=== PATIENT | female | born 1965 | race Caucasian/White ===

== ENCOUNTER 2017-01-03 18:53 | Emergency (ER) | payer MEDICAID ==
[~2017-01-03] VITALS: Ht 167.6 cm; Wt 71.8 kg
[~2017-01-03 18:53] MED LIST: ALBU8.5H3; AZIT-14 PO; LISI-170 PO; NICO1PAT4 TD; NICO2GUM3 PO; PRED20TA PO; QUET200T4 PO; TRAZ100T15 PO; ZOLOFT PO
[2017-01-03] MEDS ORDERED: DIPHENHYDRAMINE 50 MG/ML, 1ML IVPush ONE (19:30)
[2017-01-03] MEDS ORDERED: SODIUM CHLORIDE FLUSH 10ML SYR IVF ONE (19:30)
[2017-01-03] MEDS ORDERED: KETOROLAC 30 MG/1 ML IVPush ONE (19:30)
[2017-01-03] MEDS ORDERED: METOCLOPRAMIDE 5 MG/ML, 2ML IVPush ONE (19:30)
[2017-01-03] MEDS ORDERED: SODIUM CHLORIDE 0.9% 1,000ML IVBOLUS ONE ×2 (19:30→21:00)
[2017-01-03] MEDS ORDERED: PROCHLORPERAZINE 5 MG/ML, 2ML IVPush ONE (19:30)
[2017-01-03] MEDS ORDERED: PROCHLORPERAZINE 5 MG/ML, 2ML ONE (19:41)
[2017-01-03] MEDS ORDERED: KETOROLAC 30 MG/1 ML ONE (19:41)
[2017-01-03] MEDS ORDERED: DIPHENHYDRAMINE 50 MG/ML, 1ML ONE (19:41)
[2017-01-03 20:46] LABS: HEMOGLOBIN 15.1 g/dL (11.7-16.4)
[2017-01-03 20:53] LABS: BLOOD UREA NITROGEN 22 mg/dL (7-18)
[2017-01-03 20:54] VITALS: BP 119/77
== END 2017-01-03 22:34 | disposition home or self-care (01) ==
LOC: ED 21:28
DX: R51 Headache (principal); F43.10 Post-traumatic stress disorder, unspecified; Z87.01 Personal history of pneumonia (recurrent); I10 Essential (primary) hypertension; F32.9 Major depressive disorder, single episode, unspecified
CPT/HCPCS: 36415; 80048; 82040; 85025; 96374; 96375; 99284; J0780; J1200; J1885; J7030

== ENCOUNTER 2017-01-15 14:10 | Emergency (ER) | payer MEDICAID ==
[~2017-01-15] VITALS: Ht 167.6 cm; Wt 73.2 kg
[2017-01-15] MEDS ORDERED: HYDROcodone/APAP 5/325 TABLET ONE (14:56)
[2017-01-15] MEDS ORDERED: IBUPROFEN 200 MG TABLET ONE (14:58)
[2017-01-15] MEDS ORDERED: IBUPROFEN 200 MG TABLET PO ONE (15:00)
[2017-01-15 16:34] VITALS: BP 146/92
== END 2017-01-15 16:36 | disposition home or self-care (01) ==
LOC: ED 15:55
DX: M25.561 Pain in right knee (principal); M79.89 Other specified soft tissue disorders
CPT/HCPCS: 99284

== ENCOUNTER 2017-03-22 12:00 | Emergency (ER) | payer MEDICAID ==
[~2017-03-22] VITALS: Ht 167.6 cm; Wt 82.9 kg
[~2017-03-22 12:00] MED LIST changes: -AZIT-14 PO; +AZIT250T89 PO
[2017-03-22 12:04] VITALS: BP 137/92
== END 2017-03-22 13:16 | disposition home or self-care (01) ==
LOC: ED 13:10
DX: M25.461 Effusion, right knee (principal); I10 Essential (primary) hypertension; J45.909 Unspecified asthma, uncomplicated; G43.909 Migraine, unspecified, not intractable, without status migrainosus
CPT/HCPCS: 29505

== ENCOUNTER 2017-05-13 18:56 | Emergency (ER) | payer MEDICAID ==
[~2017-05-13] VITALS: Ht 167.6 cm; Wt 69.2 kg
[~2017-05-13 18:56] MED LIST changes: -ALBU8.5H3; +ALBU8.5H8; +NICO1PAT13 TD; -NICO1PAT4 TD; -NICO2GUM3 PO; +NICO2GUM41 PO
[2017-05-13 18:59] VITALS: BP 146/98
== END 2017-05-13 19:51 | disposition home or self-care (01) ==
LOC: ED 19:45
DX: S00.06XA Insect bite (nonvenomous) of scalp, initial encounter (principal); J45.909 Unspecified asthma, uncomplicated; I10 Essential (primary) hypertension; F17.200 Nicotine dependence, unspecified, uncomplicated; Z91.041 Radiographic dye allergy status; W57.XXXA Bitten or stung by nonvenomous insect and other nonvenomous arthropods, initial encounter; Y93.89 Activity, other specified; Y92.89 Other specified places as the place of occurrence of the external cause; Y99.8 Other external cause status
CPT/HCPCS: 99281

== ENCOUNTER 2017-05-25 14:48 | Emergency (ER) | payer MEDICAID ==
[~2017-05-25] VITALS: Ht 167.6 cm; Wt 68.6 kg
[2017-05-25 14:59] VITALS: BP 125/94
== END 2017-05-25 16:23 | disposition home or self-care (01) ==
LOC: ED 16:10
DX: J20.8 Acute bronchitis due to other specified organisms (principal); G89.29 Other chronic pain; F17.210 Nicotine dependence, cigarettes, uncomplicated; I10 Essential (primary) hypertension; J45.909 Unspecified asthma, uncomplicated; G43.909 Migraine, unspecified, not intractable, without status migrainosus
CPT/HCPCS: 71020; 93005; 99284

== ENCOUNTER 2017-06-21 11:29 | Emergency (ER) | payer MEDICAID ==
[~2017-06-21] VITALS: Ht 167.6 cm; Wt 71.6 kg
[~2017-06-21 11:29] MED LIST changes: +NICO-486 TD; -NICO1PAT13 TD
[2017-06-21 12:25] LABS: HEMOGLOBIN 13.7 g/dL (11.7-16.4); WHITE BLOOD COUNT 9.3 x10^3/uL (3.4-10)
[2017-06-21] MEDS ORDERED: HYDROmorphone 1 MG/ML, 1ML IVPush PRN (12:30)
[2017-06-21] MEDS ORDERED: SODIUM CHLORIDE FLUSH 10ML SYR IVF ONE (12:30)
[2017-06-21] MEDS ORDERED: ONDANSETRON 2MG/ML, 2ML IVPush ONE (12:30)
[2017-06-21 12:37] LABS: BLOOD UREA NITROGEN 23 mg/dL (7-18)
[2017-06-21] MEDS ORDERED: ONDANSETRON 2MG/ML, 2ML ONE (13:16)
[2017-06-21] MEDS ORDERED: HYDROmorphone 1 MG/ML, 1ML ONE (13:16)
[2017-06-21 14:00] VITALS: BP 148/93
== END 2017-06-21 14:28 | disposition home or self-care (01) ==
LOC: ED 12:04
DX: K59.00 Constipation, unspecified (principal); G89.29 Other chronic pain; I10 Essential (primary) hypertension; J45.909 Unspecified asthma, uncomplicated; F43.10 Post-traumatic stress disorder, unspecified
CPT/HCPCS: 36415; 74176; 80048; 81003; 82040; 85025; 96374; 96375; 99285; J1170; J2405

== ENCOUNTER 2017-07-02 18:49 | Emergency (ER) | payer MEDICAID ==
[~2017-07-02] VITALS: Ht 167.6 cm; Wt 76.5 kg
[2017-07-02 19:33] LABS: HEMATOCRIT 41.3 % (34.6-47.8); HEMOGLOBIN 13.5 g/dL (11.7-16.4); WHITE BLOOD COUNT 8.9 x10^3/uL (3.4-10)
[2017-07-02 19:45] LABS: BLOOD UREA NITROGEN 10 mg/dL (7-18)
[2017-07-02] MEDS ORDERED: ALBUTEROL 0.5%, 20ML NPPB SCH (20:00)
[2017-07-02] MEDS ORDERED: ALBUTEROL SULFATE 2.5MG/0.5ML ONE (20:00)
[2017-07-02 20:27] VITALS: BP 146/88
== END 2017-07-02 21:04 | disposition home or self-care (01) ==
LOC: ED 20:21
DX: J44.1 Chronic obstructive pulmonary disease with (acute) exacerbation (principal); Z87.891 Personal history of nicotine dependence; F32.9 Major depressive disorder, single episode, unspecified; F43.10 Post-traumatic stress disorder, unspecified; I10 Essential (primary) hypertension; J45.909 Unspecified asthma, uncomplicated
CPT/HCPCS: 36415; 71020; 80048; 82040; 85025; 93005; 94640; 99285; J7512

== ENCOUNTER 2017-11-14 10:38 | Emergency (ER) | payer MEDICAID ==
[~2017-11-14] VITALS: Ht 167.6 cm; Wt 79.0 kg
[2017-11-14 10:52] VITALS: BP 142/89
[2017-11-14] MEDS ORDERED: KETOROLAC 30 MG/1 ML ONE (11:17)
[2017-11-14] MEDS ORDERED: KETOROLAC 30 MG/1 ML IM ONE (11:30)
== END 2017-11-14 11:51 | disposition home or self-care (01) ==
LOC: ED 11:48
DX: J00 Acute nasopharyngitis [common cold] (principal); G43.909 Migraine, unspecified, not intractable, without status migrainosus; I10 Essential (primary) hypertension; J44.9 Chronic obstructive pulmonary disease, unspecified; G89.29 Other chronic pain; F43.10 Post-traumatic stress disorder, unspecified
CPT/HCPCS: 71046; 82962; 96372; 99284; J1885

== ENCOUNTER 2018-03-04 20:15 | Emergency (ER) | payer MEDICAID ==
[~2018-03-04] VITALS: Ht 162.6 cm; Wt 76.8 kg
[2018-03-04 20:23] VITALS: BP 137/87
== END 2018-03-04 22:02 | disposition home or self-care (01) ==
LOC: ED 21:35
DX: S83.91XA Sprain of unspecified site of right knee, initial encounter (principal); G89.29 Other chronic pain; I10 Essential (primary) hypertension; J45.909 Unspecified asthma, uncomplicated; G43.909 Migraine, unspecified, not intractable, without status migrainosus; X50.1XXA Overexertion from prolonged static or awkward postures, initial encounter; Y93.89 Activity, other specified; Y92.009 Unspecified place in unspecified non-institutional (private) residence as the place of occurrence of the external cause; Y99.8 Other external cause status
CPT/HCPCS: 99284

== ENCOUNTER 2018-03-13 13:08 | Emergency (ER) | payer MEDICAID ==
[~2018-03-13] VITALS: Ht 165.1 cm; Wt 74.2 kg
[2018-03-13 13:10] VITALS: BP 141/99
[2018-03-13] MEDS ORDERED: HYDROcodone/APAP 5/325 TABLET ONE (13:41)
[2018-03-13] MEDS ORDERED: HYDROcodone/APAP 5/325 TABLET PO ONE (14:00)
== END 2018-03-13 14:11 | disposition home or self-care (01) ==
LOC: ED 14:05
DX: L03.113 Cellulitis of right upper limb (principal); L03.114 Cellulitis of left upper limb; L20.84 Intrinsic (allergic) eczema; J44.9 Chronic obstructive pulmonary disease, unspecified; I10 Essential (primary) hypertension; F17.210 Nicotine dependence, cigarettes, uncomplicated
CPT/HCPCS: 99283

== ENCOUNTER 2018-06-20 08:14 | Emergency (ER) | payer MEDICAID ==
[~2018-06-20] VITALS: Ht 170.2 cm; Wt 95.0 kg
[~2018-06-20 08:14] MED LIST changes: +TRAZ-137 PO; -TRAZ100T15 PO
[2018-06-20] MEDS ORDERED: SERT100T PO (09:29)
[2018-06-20] MEDS ORDERED: FLUN8.9H INH (09:30)
[2018-06-20] MEDS ORDERED: KETOROLAC 30 MG/1 ML ONE (09:35)
[2018-06-20 09:51] LABS: BASOPHILS # (AUTO) 0.08 x10^3/uL (0-0.1); BASOPHILS % (AUTO) 1 % (0-1); EOSINOPHILS # (AUTO) 0.24 x10^3/uL (0-0.4); EOSINOPHILS % (AUTO) 4 % (1-7); LYMPHOCYTES # (AUTO) 1.81 x10^3/uL (1-3.4); LYMPHOCYTES % (AUTO) 26 % (22-44); MD NO; MEAN CORPUSCULAR HEMOGLOBIN 28.9 pg (27.0-34.8); MEAN CORPUSCULAR HGB CONC 33.2 g/dL (32.4-35.8); MEAN CORPUSCULAR VOLUME 87.1 fL (80-100); MEAN PLATELET VOLUME 7.4 fL (7.4-10.4); MONOCYTES # (AUTO) 0.59 x10^3/uL (0.2-0.8); MONOCYTES % (AUTO) 9 % (2-9); NEUTROPHILS # (AUTO) 4.14 x10^3/uL (1.8-6.8); NEUTROPHILS % (AUTO) 61 % (42-75); PLATELET COUNT 290 x10^3/uL (130-400); RED BLOOD COUNT 4.64 x10^6/uL (3.82-5.3); RED CELL DISTRIBUTION WIDTH 13.7 % (9.6-15.2)
[2018-06-20] MEDS ORDERED: KETOROLAC 60 MG/2 ML IM ONE (10:00)
[2018-06-20 10:04] LABS: ALBUMIN 3.2 g/dL (3.4-5.0); ANION GAP 5 mmol/L (5-15); CALCIUM 8.2 mg/dL (8.5-10.1); CHLORIDE 113 mmol/L (98-107); CREATININE 0.77 mg/dL (0.55-1.02)
[2018-06-20 10:44] VITALS: BP 138/90
== END 2018-06-20 10:47 | disposition home or self-care (01) ==
LOC: ED 09:53
DX: G44.219 Episodic tension-type headache, not intractable (principal); G43.909 Migraine, unspecified, not intractable, without status migrainosus; I10 Essential (primary) hypertension; J44.9 Chronic obstructive pulmonary disease, unspecified; G89.29 Other chronic pain; F43.10 Post-traumatic stress disorder, unspecified; Z98.51 Tubal ligation status
CPT/HCPCS: 36415; 70450; 71045; 80048; 82040; 85025; 96372; 99285; J1885

== ENCOUNTER 2018-07-18 10:17 | Emergency (ER) | payer MEDICAID ==
[~2018-07-18] VITALS: Ht 165.1 cm; Wt 74.0 kg
[~2018-07-18 10:17] MED LIST changes: +FLUN8.9H INH; +SERT100T PO
[2018-07-18] MEDS ORDERED: ALBUTEROL/IPRATROPIUM 2.5MG/0.5MG, 3 ML NPPB ONE (11:00)
[2018-07-18] MEDS ORDERED: ALBUTEROL/IPRATROPIUM 2.5MG/0.5MG, 3 ML ONE (11:07)
[2018-07-18 11:29] VITALS: BP 152/104
== END 2018-07-18 11:40 | disposition home or self-care (01) ==
LOC: ED 10:57
DX: J20.8 Acute bronchitis due to other specified organisms (principal); F43.10 Post-traumatic stress disorder, unspecified; J44.9 Chronic obstructive pulmonary disease, unspecified; I10 Essential (primary) hypertension; F17.200 Nicotine dependence, unspecified, uncomplicated; Z91.013 Allergy to seafood
CPT/HCPCS: 71046; 93005; 94640; 99284; J7512; J7620

== ENCOUNTER 2018-09-19 11:52 | Emergency (ER) | payer MEDICAID ==
[~2018-09-19] VITALS: Ht 167.6 cm; Wt 72.6 kg
[2018-09-19 11:58] VITALS: BP 149/107
[2018-09-19] MEDS ORDERED: KETOROLAC 30 MG/1 ML IM ONE (12:30)
[2018-09-19] MEDS ORDERED: KETOROLAC 30 MG/1 ML ONE (12:43)
== END 2018-09-19 13:11 | disposition home or self-care (01) ==
LOC: ED 13:05
DX: S40.012A Contusion of left shoulder, initial encounter (principal); J45.909 Unspecified asthma, uncomplicated; F32.9 Major depressive disorder, single episode, unspecified; F17.200 Nicotine dependence, unspecified, uncomplicated; W20.8XXA Other cause of strike by thrown, projected or falling object, initial encounter; Y93.89 Activity, other specified; Y92.098 Other place in other non-institutional residence as the place of occurrence of the external cause; Y99.8 Other external cause status
CPT/HCPCS: 73030; 96372; 99283; J1885

== ENCOUNTER 2018-09-30 07:26 | Emergency (ER) | payer MEDICAID ==
[~2018-09-30] VITALS: Ht 167.6 cm; Wt 68.4 kg
[2018-09-30 07:28] VITALS: BP 123/88
[2018-09-30] MEDS ORDERED: ONDANSETRON 2MG/ML, 2ML ONE (07:45)
[2018-09-30] MEDS ORDERED: FAMOTIDINE 20 MG/2 ML ONE (07:46)
[2018-09-30 07:55] LABS: BASOPHILS # (AUTO) 0.06 x10^3/uL (0-0.1); BASOPHILS % (AUTO) 1 % (0-1); EOSINOPHILS # (AUTO) 0.11 x10^3/uL (0-0.4); EOSINOPHILS % (AUTO) 1 % (1-7); LYMPHOCYTES # (AUTO) 2.18 x10^3/uL (1-3.4); LYMPHOCYTES % (AUTO) 18 % (22-44); MD NO; MEAN CORPUSCULAR HEMOGLOBIN 29.1 pg (27.0-34.8); MEAN CORPUSCULAR HGB CONC 33.1 g/dL (32.4-35.8); MEAN CORPUSCULAR VOLUME 88.1 fL (80-100); MEAN PLATELET VOLUME 7.5 fL (7.4-10.4); MONOCYTES # (AUTO) 0.97 x10^3/uL (0.2-0.8); MONOCYTES % (AUTO) 8 % (2-9); NEUTROPHILS # (AUTO) 8.86 x10^3/uL (1.8-6.8); NEUTROPHILS % (AUTO) 73 % (42-75); PLATELET COUNT 431 x10^3/uL (130-400); RED BLOOD COUNT 5.88 x10^6/uL (3.82-5.3); RED CELL DISTRIBUTION WIDTH 13.4 % (9.6-15.2)
[2018-09-30] MEDS ORDERED: ONDANSETRON 2MG/ML, 2ML IVPush ONE (08:00)
[2018-09-30] MEDS ORDERED: SODIUM CHLORIDE 0.9% 1,000ML IVBOLUS ONE ×2 (08:00→09:00)
[2018-09-30] MEDS ORDERED: FAMOTIDINE 20 MG/2 ML IVP ONE (08:00)
--- NOTE | 2018-09-30 08:07 | NUR ---
pt reports abd pain w n/v observed pt on first time to room drinking coffee and talking on cell phone in full sentences no noted obsevation of nausea at thi time iv started and meds given per orders
[2018-09-30 08:09] LABS: ALANINE AMINOTRANSFERASE 23 U/L (12-78); ALBUMIN 4.4 g/dL (3.4-5.0); ANION GAP 10 mmol/L (5-15); CALCIUM 10.2 mg/dL (8.5-10.1); CHLORIDE 106 mmol/L (98-107)
[2018-09-30 08:13] LABS: ALKALINE PHOSPHATASE 161 U/L (45-117); BILIRUBIN,TOTAL 0.5 mg/dL (0.2-1.0); TOTAL PROTEIN 9.1 g/dL (6.4-8.2)
[2018-09-30 10:28] LABS: CULTURE INDICATED? YES; MICROSCOPIC INDICATED
== END 2018-09-30 11:31 | disposition home or self-care (01) ==
LOC: ED 08:22
DX: A08.4 Viral intestinal infection, unspecified (principal); N30.00 Acute cystitis without hematuria; N28.9 Disorder of kidney and ureter, unspecified; J44.9 Chronic obstructive pulmonary disease, unspecified; G89.29 Other chronic pain; I10 Essential (primary) hypertension; G43.909 Migraine, unspecified, not intractable, without status migrainosus
CPT/HCPCS: 36415; 71046; 80053; 81001; 83690; 84703; 85025; 87086; 96361; 96374; 96375; 99284; J2405; J3490; J7030

== ENCOUNTER 2018-11-20 08:48 | Emergency (ER) | payer MEDICAID ==
[~2018-11-20] VITALS: Ht 167.6 cm; Wt 73.1 kg
[~2018-11-20 08:48] MED LIST changes: +METH750T87 PO
[2018-11-20 09:00] VITALS: BP 137/89
--- NOTE | 2018-11-20 09:18 | NUR ---
right low back pain and "jabs into ribs." denies urinary symptoms. to rm 5 and awaiting eval
[2018-11-20] MEDS ORDERED: KETOROLAC 30 MG/1 ML ONE (09:52)
--- NOTE | 2018-11-20 09:58 | NUR ---
OBTAINED URINE SAMPLE AND MEDICATED PER ORDERS
[2018-11-20] MEDS ORDERED: KETOROLAC 30 MG/1 ML IM ONE (10:00)
[2018-11-20 10:27] LABS: MICROSCOPIC NOT IND
[2018-11-20 10:40] LABS: CULTURE INDICATED? NO
== END 2018-11-20 11:00 | disposition home or self-care (01) ==
LOC: ED 10:55
DX: M54.5 Low back pain (principal); F17.210 Nicotine dependence, cigarettes, uncomplicated; G89.29 Other chronic pain; J44.9 Chronic obstructive pulmonary disease, unspecified; G43.909 Migraine, unspecified, not intractable, without status migrainosus
CPT/HCPCS: 81003; 96372; 99283; J1885

== ENCOUNTER 2019-01-11 15:25 | Emergency (ER) | payer MEDICAID ==
[~2019-01-11] VITALS: Ht 167.6 cm; Wt 71.1 kg
[2019-01-11 15:53] LABS: BASOPHILS # (AUTO) 0.06 x10^3/uL (0-0.1); BASOPHILS % (AUTO) 1 % (0-1); EOSINOPHILS # (AUTO) 0.04 x10^3/uL (0-0.4); EOSINOPHILS % (AUTO) 0 % (1-7); LYMPHOCYTES # (AUTO) 2.73 x10^3/uL (1-3.4); LYMPHOCYTES % (AUTO) 24 % (22-44); MD NO; MEAN CORPUSCULAR HEMOGLOBIN 29.3 pg (27.0-34.8); MEAN CORPUSCULAR HGB CONC 32.7 g/dL (32.4-35.8); MEAN CORPUSCULAR VOLUME 89.6 fL (80-100); MEAN PLATELET VOLUME 7.6 fL (7.4-10.4); MONOCYTES % (AUTO) 7 % (2-9); NEUTROPHILS # (AUTO) 7.67 x10^3/uL (1.8-6.8); NEUTROPHILS % (AUTO) 68 % (42-75); PLATELET COUNT 377 x10^3/uL (130-400); RED BLOOD COUNT 5.48 x10^6/uL (3.82-5.3)
[2019-01-11 16:02] LABS: ALBUMIN 4.5 g/dL (3.4-5.0); ANION GAP 6 mmol/L (5-15); CALCIUM 9.4 mg/dL (8.5-10.1); CHLORIDE 111 mmol/L (98-107)
[2019-01-11 16:07] LABS: ALANINE AMINOTRANSFERASE 18 U/L (12-78); ALKALINE PHOSPHATASE 136 U/L (45-117); BILIRUBIN,TOTAL 0.8 mg/dL (0.2-1.0); CREATININE 0.93 mg/dL (0.55-1.02); TOTAL PROTEIN 8.4 g/dL (6.4-8.2)
[2019-01-11 16:40] LABS: MICROSCOPIC NOT IND
[2019-01-11 16:50] LABS: CULTURE INDICATED? NO
--- NOTE | 2019-01-11 17:15 | NUR ---
HISTORY FACULTY MEMBER: PT TO ROOM FROM JU[facility] LOFTON
--- NOTE | 2019-01-11 17:56 | NUR ---
LESLEE WALL AT BEDSIDE.
--- NOTE | 2019-01-11 18:00 | NUR ---
PT PRESENTS TO ED WITH C/O RIGHT FLANK PAIN FOR SEVERAL DAYS, PT RESTING ON GURNEY, RESPS EVEN AND UNLABORED, NO APPARENT DISTRESS. BP AND SPO2 MONITORS IN PLACE. LABS AND URINE RESULTED, AWAITING US AND DISPO.
[2019-01-11 18:03] VITALS: BP 140/93
--- NOTE | 2019-01-11 18:04 | NUR ---
PT TO US AT THIS TIME.
--- NOTE | 2019-01-11 19:08 | NUR ---
TASK RN: Discharge instructions discussed with patient, patient verbalizes understanding. Patient ambulates with steady gait to discharge desk in no acute distress.
== END 2019-01-11 19:10 | disposition home or self-care (01) ==
LOC: ED 17:45
DX: R10.9 Unspecified abdominal pain (principal); J44.9 Chronic obstructive pulmonary disease, unspecified; I10 Essential (primary) hypertension; F17.200 Nicotine dependence, unspecified, uncomplicated
CPT/HCPCS: 36415; 76770; 80053; 81003; 85025; 99284

== ENCOUNTER 2019-01-26 08:55 | Emergency (ER) | payer MEDICAID, OTHER ==
[~2019-01-26] VITALS: Ht 167.6 cm; Wt 72.3 kg
[2019-01-26 08:57] VITALS: BP 153/101
--- NOTE | 2019-01-26 09:10 | NUR ---
RT PAGED FOR TX. PT IS A&O, RESPS EVEN AND UNLABORED, SPEAKING IN FULL SENTENCES WITHOUT DIFFICULTY.
[2019-01-26] MEDS ORDERED: ALBUTEROL SULFATE 2.5 MG/3 ML ONE (09:14)
--- NOTE | 2019-01-26 09:14 | NUR ---
PT TO RADIOLOGY WITH TECH, GAIT STEADY.
--- NOTE | 2019-01-26 09:20 | NUR ---
PT BACK FROM RADIOLOGY, RT AT BEDSIDE FOR TX.
[2019-01-26] MEDS ORDERED: ALBUTEROL SULFATE 2.5 MG/3 ML NPPB ONE (09:30)
--- NOTE | 2019-01-26 09:43 | NUR ---
EDPA AT BEDSIDE FOR RE-EVAL S/P RT TX.
--- NOTE | 2019-01-26 10:04 | NUR ---
PT REPORTS FEELING BETTER S/P BREATHING TX, PT A&O, RESPS EVEN AND UNLABOARED. SPEAKING IN FULL SENTENCES WITHOUT DIFFICULTY. PT GIVEN DC INSTRUCTIONS AND SCRIPT, EDUCATED REGARDING ALBUTEROL AND PREDNISONE RX. PT AMB TO DC DESK WITH STEADY GAIT, NADN AT DC.
== END 2019-01-26 10:05 | disposition home or self-care (01) ==
LOC: ED 09:49
DX: J45.41 Moderate persistent asthma with (acute) exacerbation (principal); G89.29 Other chronic pain; I10 Essential (primary) hypertension; F32.9 Major depressive disorder, single episode, unspecified
CPT/HCPCS: 71046; 94640; 99283; J7512; J7613

== ENCOUNTER 2019-03-26 14:43 | Emergency (ER) | payer OTHER ==
[~2019-03-26] VITALS: Ht 160 cm; Wt 73.0 kg
[2019-03-26 14:47] VITALS: BP 149/99
== END 2019-03-26 16:34 | disposition home or self-care (01) ==
LOC: ED 16:21
DX: H66.001 Acute suppurative otitis media without spontaneous rupture of ear drum, right ear (principal); I10 Essential (primary) hypertension; J44.9 Chronic obstructive pulmonary disease, unspecified; J45.909 Unspecified asthma, uncomplicated; F17.200 Nicotine dependence, unspecified, uncomplicated; Z91.013 Allergy to seafood
CPT/HCPCS: 70480; 99284

== ENCOUNTER 2019-04-25 08:15 | Emergency (ER) | payer OTHER ==
[~2019-04-25] VITALS: Ht 160 cm; Wt 72.0 kg
[2019-04-25 12:59] VITALS: BP 133/88
== END 2019-04-25 13:43 | disposition home or self-care (01) ==
LOC: ED 10:28
DX: R07.89 Other chest pain (principal); J18.0 Bronchopneumonia, unspecified organism; J44.9 Chronic obstructive pulmonary disease, unspecified; G89.29 Other chronic pain; G43.909 Migraine, unspecified, not intractable, without status migrainosus
CPT/HCPCS: 36415; 71045; 71275; 80053; 83690; 84484; 85025; 85379; 93005; 99284; Q9967

== ENCOUNTER 2019-09-27 08:03 | Emergency (ER) | payer MEDICAID, OTHER ==
[~2019-09-27] VITALS: Ht 165.1 cm; Wt 69.4 kg
[~2019-09-27 08:03] MED LIST changes: +AMLO-150 PO; -TRAZ-137 PO; +TRAZ-175 PO
[2019-09-27 08:06] VITALS: BP 159/102
[2019-09-27] MEDS ORDERED: KETOROLAC 30 MG/1 ML ONE (08:55)
[2019-09-27] MEDS ORDERED: KETOROLAC 30 MG/1 ML IM ONE (09:00)
--- NOTE | 2019-09-27 09:02 | NUR ---
REPORT FROM KOLBY SAGE HAS CO SHOULDER PAIN FOR 9 MONTHS, NO INJURY OR TRAUMA. MEDICATED FOR PAIN
--- NOTE | 2019-09-27 09:44 | NUR ---
[facility] APPLIED Patient/Caregiver given discharge instructions and they have confirmed that they understand the instructions. Patient ambulatory with steady gait.
== END 2019-09-27 09:46 | disposition home or self-care (01) ==
LOC: ED 08:37
DX: G89.29 Other chronic pain (principal); M25.512 Pain in left shoulder; F17.210 Nicotine dependence, cigarettes, uncomplicated; J44.9 Chronic obstructive pulmonary disease, unspecified; I10 Essential (primary) hypertension; G43.909 Migraine, unspecified, not intractable, without status migrainosus
CPT/HCPCS: 73030; 96372; 99283; J1885

== ENCOUNTER 2019-10-23 08:01 | Emergency (ER) | payer MEDICAID ==
[~2019-10-23] VITALS: Ht 165.1 cm; Wt 73.1 kg
[2019-10-23 08:05] VITALS: BP 133/95
[2019-10-23] MEDS ORDERED: KETOROLAC 30 MG/1 ML ONE (08:34)
--- NOTE | 2019-10-23 08:40 | NUR ---
PT WITH L UPPER SHOULDER PAIN, STATES SHE WAS ATTEMPTING TO COMPLETE AN MRI BUT WAS UNABLE TO D/T PAIN/DISCOMFORT. PT MEDICATED PER NOV. PT TO F/U WITH ORTHOPEDIC MD TODAY AFTER DISCHARGE
[2019-10-23] MEDS ORDERED: KETOROLAC 30 MG/1 ML IM ONE (09:00)
== END 2019-10-23 09:06 | disposition home or self-care (01) ==
LOC: ED 08:59
DX: G89.29 Other chronic pain (principal); M25.512 Pain in left shoulder; I10 Essential (primary) hypertension; G43.909 Migraine, unspecified, not intractable, without status migrainosus; J44.9 Chronic obstructive pulmonary disease, unspecified
CPT/HCPCS: 96372; 99283; J1885

== ENCOUNTER 2020-02-08 20:39 | Emergency (ER) | payer MEDICAID ==
[~2020-02-08] VITALS: Ht 162.6 cm; Wt 71.3 kg
--- NOTE | 2020-02-08 20:45 | NUR ---
PT REPORTS THAT SHE IS SUPPOSED TO TAKE BLOOD PRESSURE MEDICATIONS AND "MENTAL" MEDICATIONS, PT DOES NOT TAKE THESE
[2020-02-08] MEDS ORDERED: CEPHALEXIN 500 MG CAPSULE ONE (21:44)
[2020-02-08] MEDS ORDERED: SULFAMETH./TRIMETHOPRIM DS 800MG/160MG TABLET ONE (21:44)
[2020-02-08 21:58] LABS: ALBUMIN 3.3 g/dL (3.4-5.0); ANION GAP 6 mmol/L (5-15); CALCIUM 8.9 mg/dL (8.5-10.1); CHLORIDE 109 mmol/L (98-107); CREATININE 0.97 mg/dL (0.55-1.02)
[2020-02-08 22:00] LABS: BASOPHILS # (AUTO) 0.03 x10^3/uL (0-0.1); BASOPHILS % (AUTO) 0 % (0-1); EOSINOPHILS # (AUTO) 0.14 x10^3/uL (0-0.4); EOSINOPHILS % (AUTO) 1 % (1-7); LYMPHOCYTES # (AUTO) 1.27 x10^3/uL (1-3.4); LYMPHOCYTES % (AUTO) 10 % (22-44); MD NO; MEAN CORPUSCULAR HEMOGLOBIN 29.2 pg (27.0-34.8); MEAN CORPUSCULAR HGB CONC 33.2 g/dL (32.4-35.8); MEAN CORPUSCULAR VOLUME 87.9 fL (80-100); MEAN PLATELET VOLUME 7.9 fL (7.4-10.4); MONOCYTES # (AUTO) 0.81 x10^3/uL (0.2-0.8); MONOCYTES % (AUTO) 6 % (2-9); NEUTROPHILS # (AUTO) 10.62 x10^3/uL (1.8-6.8); NEUTROPHILS % (AUTO) 83 % (42-75); PLATELET COUNT 301 x10^3/uL (130-400); RED BLOOD COUNT 4.67 x10^6/uL (3.82-5.3); RED CELL DISTRIBUTION WIDTH 13.3 % (9.6-15.2)
[2020-02-08] MEDS ORDERED: SULFAMETH./TRIMETHOPRIM DS 800MG/160MG TABLET PO ONE (22:00)
[2020-02-08] MEDS ORDERED: CEPHALEXIN 500 MG CAPSULE PO ONE (22:00)
--- NOTE | 2020-02-08 22:15 | NUR ---
Patient given discharge instructions and they have confirmed that they understand the instructions. Patient ambulatory with steady gait.
[2020-02-08 22:20] VITALS: BP 142/102
== END 2020-02-08 22:22 | disposition home or self-care (01) ==
LOC: ED 20:52
DX: L03.123 Acute lymphangitis of right upper limb (principal); L03.113 Cellulitis of right upper limb; I16.9 Hypertensive crisis, unspecified; J44.9 Chronic obstructive pulmonary disease, unspecified; G43.909 Migraine, unspecified, not intractable, without status migrainosus; F17.210 Nicotine dependence, cigarettes, uncomplicated
CPT/HCPCS: 36415; 80048; 82040; 85025; 99283

== ENCOUNTER 2020-05-19 20:08 | Emergency (ER) | payer MEDICAID ==
[~2020-05-19] VITALS: Ht 154.9 cm; Wt 77.0 kg
[2020-05-19] MEDS ORDERED: HYDROcodone/APAP 5/325 TABLET ONE (20:48)
[2020-05-19] MEDS ORDERED: HYDROcodone/APAP 5/325 TABLET PO ONE (21:00)
[2020-05-19 21:10] LABS: BASOPHILS # (AUTO) 0.04 x10^3/uL (0-0.1); BASOPHILS % (AUTO) 0 % (0-1); EOSINOPHILS # (AUTO) 0.06 x10^3/uL (0-0.4); EOSINOPHILS % (AUTO) 1 % (1-7); LYMPHOCYTES # (AUTO) 2.03 x10^3/uL (1-3.4); LYMPHOCYTES % (AUTO) 18 % (22-44); MD NO; MEAN CORPUSCULAR HEMOGLOBIN 29.8 pg (27.0-34.8); MEAN CORPUSCULAR HGB CONC 32.8 g/dL (32.4-35.8); MEAN CORPUSCULAR VOLUME 90.8 fL (80-100); MEAN PLATELET VOLUME 7.4 fL (7.4-10.4); MONOCYTES # (AUTO) 1.23 x10^3/uL (0.2-0.8); MONOCYTES % (AUTO) 11 % (2-9); NEUTROPHILS # (AUTO) 7.98 x10^3/uL (1.8-6.8); NEUTROPHILS % (AUTO) 70 % (42-75); PLATELET COUNT 366 x10^3/uL (130-400); RED BLOOD COUNT 4.84 x10^6/uL (3.82-5.3); RED CELL DISTRIBUTION WIDTH 14.3 % (9.6-15.2)
[2020-05-19 21:20] LABS: ALBUMIN 3.4 g/dL (3.4-5.0); ANION GAP 8 mmol/L (5-15); CALCIUM 9.4 mg/dL (8.5-10.1); CHLORIDE 109 mmol/L (98-107); CREATININE 0.94 mg/dL (0.55-1.02)
[2020-05-19 22:08] VITALS: BP 143/99
[2020-05-19] MEDS ORDERED: SULFAMETH./TRIMETHOPRIM DS 800MG/160MG TABLET PO ONE (22:30)
[2020-05-19] MEDS ORDERED: SULFAMETH./TRIMETHOPRIM DS 800MG/160MG TABLET ONE (22:55)
--- NOTE | 2020-05-19 23:10 | NUR ---
Patient transferred to wheelchair without difficulty. Given D/C instructions and follow-up information.
== END 2020-05-19 23:10 | disposition home or self-care (01) ==
LOC: ED 22:25
DX: L03.116 Cellulitis of left lower limb (principal); F17.210 Nicotine dependence, cigarettes, uncomplicated; I10 Essential (primary) hypertension; J44.9 Chronic obstructive pulmonary disease, unspecified
CPT/HCPCS: 36415; 80048; 82040; 85025; 99283

== ENCOUNTER 2020-06-27 12:20 | Emergency (ER) | payer MEDICAID ==
[~2020-06-27] VITALS: Ht 165.1 cm; Wt 70.0 kg
[2020-06-27] MEDS ORDERED: LISI10TA2 PO (12:44)
[2020-06-27] MEDS ORDERED: TRAZ150T62 PO (12:44)
[2020-06-27] MEDS ORDERED: ALBU90AE INH (12:44)
[2020-06-27] MEDS ORDERED: IBUP-1223 PO (12:44)
[2020-06-27] MEDS ORDERED: PROMETHAZINE 25 MG/ML, 1ML ONE (12:50)
[2020-06-27] MEDS ORDERED: KETOROLAC 30 MG/1 ML ONE (12:50)
[2020-06-27] MEDS ORDERED: KETOROLAC 30 MG/1 ML IM ONE (13:00)
[2020-06-27] MEDS ORDERED: PROMETHAZINE 25 MG/ML, 1ML IM ONE (13:00)
--- NOTE | 2020-06-27 13:44 | NUR ---
ERP DR LOYA AT BEDSIDE FOR RE-EVAL.
[2020-06-27 13:45] VITALS: BP 131/92
== END 2020-06-27 14:15 | disposition home or self-care (01) ==
LOC: ED 13:36
DX: G43.019 Migraine without aura, intractable, without status migrainosus (principal); R11.2 Nausea with vomiting, unspecified; J44.9 Chronic obstructive pulmonary disease, unspecified; I10 Essential (primary) hypertension; F17.200 Nicotine dependence, unspecified, uncomplicated
CPT/HCPCS: 96372; 99284; J1885; J2550

== ENCOUNTER 2020-09-08 07:52 | Emergency (ER) | payer MEDICAID ==
[~2020-09-08] VITALS: Ht 165.1 cm; Wt 66.7 kg
[~2020-09-08 07:52] MED LIST changes: +ALBU90AE INH; +IBUP-1223 PO; +LISI10TA2 PO; +TRAZ150T62 PO
[2020-09-08] MEDS ORDERED: ONDANSETRON 2MG/ML, 2ML IVPush ONE (08:30)
[2020-09-08] MEDS ORDERED: SODIUM CHLORIDE FLUSH 10ML SYR IVF ONE (08:30)
[2020-09-08] MEDS ORDERED: KETOROLAC 30 MG/1 ML IVPush ONE (08:30)
[2020-09-08] MEDS ORDERED: SODIUM CHLORIDE 0.9% 1,000ML IV ONE (08:30)
[2020-09-08 08:33] LABS: BASOPHILS % (AUTO) 1 % (0-1); EOSINOPHILS % (AUTO) 1 % (1-7); LYMPHOCYTES % (AUTO) 18 % (22-44); MEAN CORPUSCULAR HEMOGLOBIN 29.8 pg (27.0-34.8); MEAN CORPUSCULAR HGB CONC 33.7 g/dL (32.4-35.8); MEAN PLATELET VOLUME 6.9 fL (7.4-10.4); MONOCYTES % (AUTO) 9 % (2-9); NEUTROPHILS % (AUTO) 72 % (42-75); PLATELET COUNT 359 x10^3/uL (130-400); RED BLOOD COUNT 4.73 x10^6/uL (3.82-5.3); RED CELL DISTRIBUTION WIDTH 14.4 % (9.6-15.2)
[2020-09-08 08:35] LABS: MD NO
[2020-09-08 08:43] LABS: MICROSCOPIC INDICATED
[2020-09-08 08:45] LABS: ALANINE AMINOTRANSFERASE 23 U/L (12-78); ALBUMIN 3.4 g/dL (3.4-5.0); ANION GAP 4 mmol/L (5-15); CALCIUM 8.9 mg/dL (8.5-10.1); CHLORIDE 113 mmol/L (98-107)
[2020-09-08 08:50] LABS: ALKALINE PHOSPHATASE 161 U/L (45-117); BILIRUBIN,TOTAL 0.3 mg/dL (0.2-1.0); CREATININE 1.03 mg/dL (0.55-1.02); TOTAL PROTEIN 7.3 g/dL (6.4-8.2)
[2020-09-08] MEDS ORDERED: ONDANSETRON 2MG/ML, 2ML ONE (09:07)
[2020-09-08] MEDS ORDERED: ONDANSETRON ODT 4 MG ONE (09:07)
[2020-09-08] MEDS ORDERED: KETOROLAC 30 MG/1 ML ONE (09:11)
--- NOTE | 2020-09-08 09:19 | NUR ---
medicated per orders
[2020-09-08] MEDS ORDERED: ONDANSETRON 2MG/ML, 2ML IM ONE (09:30)
[2020-09-08] MEDS ORDERED: KETOROLAC 30 MG/1 ML IM ONE (09:30)
[2020-09-08 10:01] VITALS: BP 141/95
--- NOTE | 2020-09-08 10:01 | NUR ---
Patient/Caregiver given discharge instructions and they have confirmed that they understand the instructions. Patient ambulatory with steady gait.
== END 2020-09-08 10:03 | disposition home or self-care (01) ==
LOC: ED 08:40
DX: N30.00 Acute cystitis without hematuria (principal); J44.9 Chronic obstructive pulmonary disease, unspecified; I10 Essential (primary) hypertension
CPT/HCPCS: 36415; 74176; 80053; 81001; 83690; 84703; 85025; 87086; 96372; 99284; J1885

== ENCOUNTER 2020-11-27 06:30 | Emergency (ER) | payer MEDICAID ==
[~2020-11-27] VITALS: Ht 165.1 cm; Wt 69.1 kg
[~2020-11-27 06:30] MED LIST changes: +LISI10TA19 PO; -LISI10TA2 PO
[2020-11-27] MEDS ORDERED: ALBUTEROL/IPRATROPIUM 2.5MG/0.5MG, 3 ML ONE (06:54)
[2020-11-27] MEDS ORDERED: ALBUTEROL/IPRATROPIUM 2.5MG/0.5MG, 3 ML NPPB ONE (07:00)
--- NOTE | 2020-11-27 07:08 | NUR ---
PT IS A 55F WITH COMPLAINTS OF SOB X 3 DAYS WITH WORSENING SYMPTOMS THIS MORNING. PROVIDER AT BEDSIDE FOR EVAL AND POC. RA SAT 97%. NADN, SPOUSE AT BEDSIDE. SP02 AND BP MONITORS IN PLACE. CALL LIGHT WITHIN REACH.
--- NOTE | 2020-11-27 07:26 | NUR ---
PATIENT TOLERATED BREATHING TREATMENT WELL, REPORTS FEELING BETTER. NADN, VSS, CALL LIGHT WITHIN REACH.
[2020-11-27 07:58] VITALS: BP 147/81
--- NOTE | 2020-11-27 07:59 | NUR ---
Patient given discharge instructions and prescription and they have confirmed that they understand the instructions. Patient stable and ambulatory with steady gait from ED with spouse to private vehicle.
== END 2020-11-27 08:00 | disposition home or self-care (01) ==
LOC: ED 07:00
DX: J45.31 Mild persistent asthma with (acute) exacerbation (principal); G43.909 Migraine, unspecified, not intractable, without status migrainosus; I10 Essential (primary) hypertension; J44.9 Chronic obstructive pulmonary disease, unspecified; B34.9 Viral infection, unspecified
CPT/HCPCS: 71045; 94640; 99283; J7512; 99406

== ENCOUNTER 2020-12-03 05:11 | Emergency (ER) | payer MEDICAID ==
[~2020-12-03] VITALS: Ht 165.1 cm; Wt 68.5 kg
[2020-12-03] MEDS ORDERED: ALBUTEROL/IPRATROPIUM 2.5MG/0.5MG, 3 ML ONE (05:30)
[2020-12-03] MEDS ORDERED: ALBUTEROL/IPRATROPIUM 2.5MG/0.5MG, 3 ML NPPB ONE (05:30)
[2020-12-03] MEDS ORDERED: ACETAMINOPHEN 500 MG TABLET PO ONE (05:30)
--- NOTE | 2020-12-03 05:31 | NUR ---
MARTHA li started, on cont pulse ox. AIDET provided.
[2020-12-03] MEDS ORDERED: ACETAMINOPHEN 500 MG TABLET ONE (05:38)
--- NOTE | 2020-12-03 05:46 | NUR ---
HHN finished, o2 sat 95% on RA
[2020-12-03 06:58] VITALS: BP 134/84
--- NOTE | 2020-12-03 06:59 | NUR ---
REPORT FROM KAPIL AVALOS. PT LAYING ON GUBORIS, WATCHING TV CALMLY. NAD/VSS. CALL LIGHT WITHIN REACH. NO NEEDS AT THIS TIME
--- NOTE | 2020-12-03 07:20 | NUR ---
Patient given discharge instructions and they have confirmed that they understand the instructions. Patient ambulatory with steady gait.
== END 2020-12-03 07:22 | disposition home or self-care (01) ==
LOC: ED 05:31
DX: J45.41 Moderate persistent asthma with (acute) exacerbation (principal)
CPT/HCPCS: 71045; 93005; 94640; 99283; J7512; 99406

== ENCOUNTER 2020-12-07 07:57 | Emergency (ER) | payer MEDICAID ==
[~2020-12-07] VITALS: Ht 165.1 cm; Wt 68.7 kg
[2020-12-07] MEDS ORDERED: METHOCARBAMOL 750 MG TABLET ONE (08:22)
[2020-12-07] MEDS ORDERED: KETOROLAC 30 MG/1 ML ONE (08:23)
[2020-12-07 08:28] VITALS: BP 140/86
[2020-12-07] MEDS ORDERED: KETOROLAC 30 MG/1 ML IM ONE (08:30)
[2020-12-07] MEDS ORDERED: METHOCARBAMOL 750 MG TABLET PO ONE (08:30)
--- NOTE | 2020-12-07 08:37 | NUR ---
PT IN WITH COMPLAINS OF LOWER BACK PAIN AND HX OF CHRONIC PAIN. A&O X4, SPEAKING IN FULL SENTENCES, VSS. DISCUSSED POC W/ PT AND MEDICATED PER NOV. WARM BLANKET PROVIDED AND POSITIONED FOR COMFORT.
== END 2020-12-07 08:58 | disposition home or self-care (01) ==
LOC: ED 08:24
DX: M54.5 Low back pain (principal); I10 Essential (primary) hypertension
CPT/HCPCS: 96372; 99283; J1885

== ENCOUNTER 2021-01-07 22:01 | Emergency (ER) | payer MEDICAID ==
[~2021-01-07] VITALS: Ht 167.6 cm; Wt 68.6 kg
[2021-01-07 22:04] VITALS: BP 157/112
--- NOTE | 2021-01-07 22:14 | NUR ---
CC OF "REALLY BAD PAIN IN MY RIGHT SHOULDER FOR 1 DAY, ITS BEEN FALLING ASLEEP A LOT OVER THE LAST MONTH". DENIES SOB, TRAUMA, CP. 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
[2021-01-07] MEDS ORDERED: KETOROLAC 60 MG/2 ML ONE (22:22)
[2021-01-07] MEDS ORDERED: DIAZEPAM 5 MG TABLET ONE (22:22)
[2021-01-07] MEDS ORDERED: HYDROcodone/APAP 5/325 TABLET ONE (22:23)
[2021-01-07] MEDS ORDERED: DIAZEPAM 5 MG TABLET PO ONE (22:30)
[2021-01-07] MEDS ORDERED: HYDROcodone/APAP 5/325 TABLET PO PRN (22:30)
[2021-01-07] MEDS ORDERED: KETOROLAC 30 MG/1 ML IM ONE (22:30)
== END 2021-01-07 22:46 | disposition home or self-care (01) ==
LOC: ED 22:31
DX: S16.1XXA Strain of muscle, fascia and tendon at neck level, initial encounter (principal); M25.511 Pain in right shoulder; M62.838 Other muscle spasm; I10 Essential (primary) hypertension; J44.9 Chronic obstructive pulmonary disease, unspecified; R00.0 Tachycardia, unspecified; G89.29 Other chronic pain; F17.210 Nicotine dependence, cigarettes, uncomplicated; Z98.51 Tubal ligation status; X58.XXXA Exposure to other specified factors, initial encounter; Y93.89 Activity, other specified; Y92.89 Other specified places as the place of occurrence of the external cause; Y99.8 Other external cause status
CPT/HCPCS: 93005; 96372; 99283; 99406; J1885

== ENCOUNTER 2021-02-17 10:20 | Emergency (ER) | payer MEDICAID ==
[~2021-02-17] VITALS: Ht 165.1 cm; Wt 67.4 kg
--- NOTE | 2021-02-17 10:43 | NUR ---
ASSUMED CARE OF PT. SHE REPORTS "I HAVE KIDNEY STONES AGAIN" SHE HAS LOW BACK PAIN X3 DAYS. PT IS IN GOWN, VOIDED AND PROVIDED URINE SAMPLE, HOOKED TO MONITOR. MELYSSA CLARK. CALL LIGHT W/IN REACH.
[2021-02-17 11:23] LABS: BASOPHILS % (AUTO) 1 % (0-1); EOSINOPHILS % (AUTO) 3 % (1-7); LYMPHOCYTES % (AUTO) 24 % (22-44); MEAN CORPUSCULAR HGB CONC 33.8 g/dL (32.4-35.8); MEAN PLATELET VOLUME 7.1 fL (7.4-10.4); MONOCYTES % (AUTO) 9 % (2-9); NEUTROPHILS % (AUTO) 63 % (42-75); PLATELET COUNT 315 x10^3/uL (130-400); RED BLOOD COUNT 4.69 x10^6/uL (3.82-5.3); RED CELL DISTRIBUTION WIDTH 13.7 % (9.6-15.2)
[2021-02-17 11:25] LABS: MICROSCOPIC INDICATED
[2021-02-17 11:26] LABS: MD NO
[2021-02-17 11:35] LABS: ALANINE AMINOTRANSFERASE 18 U/L (12-78); ALBUMIN 3.2 g/dL (3.4-5.0); ANION GAP 6 mmol/L (5-15); CALCIUM 8.7 mg/dL (8.5-10.1); CHLORIDE 111 mmol/L (98-107); CREATININE 0.91 mg/dL (0.55-1.02)
[2021-02-17 11:37] LABS: ALKALINE PHOSPHATASE 141 U/L (45-117); BILIRUBIN,TOTAL 0.3 mg/dL (0.2-1.0); TOTAL PROTEIN 7.1 g/dL (6.4-8.2)
--- NOTE | 2021-02-17 11:54 | NUR ---
PT RESTING ON MELYSSA NEUMANN. CALL LIGHT W/IN REACH.
--- NOTE | 2021-02-17 12:17 | NUR ---
PT RESTING ON GURNEY, EYES CLOSED. REGULAR/UNLABORED RESP OBSERVED. NADN, VSS. CALL LIGHT W/IN REACH.
--- NOTE | 2021-02-17 12:38 | NUR ---
PT TO CT
[2021-02-17 14:22] VITALS: BP 169/95
--- NOTE | 2021-02-17 14:23 | NUR ---
Patient given discharge instructions and they have confirmed that they understand the instructions. Patient stable and ambulatory with steady gait from ED to private vehicle.
== END 2021-02-17 14:24 | disposition home or self-care (01) ==
LOC: ED 12:34
DX: N13.2 Hydronephrosis with renal and ureteral calculous obstruction (principal)
CPT/HCPCS: 36415; 74176; 80053; 81001; 83690; 85025; 87086; 99284

== ENCOUNTER 2021-02-20 11:43 | Emergency (ER) | payer MEDICAID ==
[~2021-02-20] VITALS: Ht 160 cm; Wt 67.0 kg
--- NOTE | 2021-02-20 12:23 | NUR ---
PT. HAS KNOWN KIDNEY STONES. SHE WAS SEEN FOR THE SAME X 3 DAYS AGO. PT. HERE FOR INCREASING PAIN. PT WITH STEADY GAIT TO BED. ATTACHED TO MONITORS. VSS. NADN. JUNITO ROSS TO BEDSIDE FOR EVALUATION
[2021-02-20] MEDS ORDERED: KETOROLAC 30 MG/1 ML IM ONE (12:30)
[2021-02-20] MEDS ORDERED: ONDANSETRON ODT 4 MG PO ONE (12:30)
[2021-02-20 12:32] LABS: MICROSCOPIC INDICATED
[2021-02-20] MEDS ORDERED: ONDANSETRON ODT 4 MG ONE (12:55)
[2021-02-20] MEDS ORDERED: KETOROLAC 30 MG/1 ML ONE (12:55)
--- NOTE | 2021-02-20 12:58 | NUR ---
PT MEDICATED PER EMAR. AMBER. MELYSSA. US AT BEDSIDE
[2021-02-20 12:59] LABS: BASOPHILS % (AUTO) 1 % (0-1); EOSINOPHILS % (AUTO) 1 % (1-7); LYMPHOCYTES % (AUTO) 26 % (22-44); MD NO; MEAN CORPUSCULAR HEMOGLOBIN 28.7 pg (27.0-34.8); MEAN CORPUSCULAR HGB CONC 33.4 g/dL (32.4-35.8); MEAN PLATELET VOLUME 6.9 fL (7.4-10.4); MONOCYTES % (AUTO) 8 % (2-9); NEUTROPHILS % (AUTO) 64 % (42-75); PLATELET COUNT 352 x10^3/uL (130-400); RED BLOOD COUNT 4.61 x10^6/uL (3.82-5.3); RED CELL DISTRIBUTION WIDTH 13.6 % (9.6-15.2)
[2021-02-20 13:11] LABS: ALANINE AMINOTRANSFERASE 22 U/L (12-78); ALBUMIN 3.2 g/dL (3.4-5.0); ANION GAP 5 mmol/L (5-15); CALCIUM 8.5 mg/dL (8.5-10.1); CHLORIDE 112 mmol/L (98-107); CREATININE 0.88 mg/dL (0.55-1.02)
[2021-02-20 13:13] LABS: ALKALINE PHOSPHATASE 143 U/L (45-117); BILIRUBIN,TOTAL 0.3 mg/dL (0.2-1.0); TOTAL PROTEIN 7.4 g/dL (6.4-8.2)
[2021-02-20] MEDS ORDERED: POTASSIUM CHLORIDE 20 MEQ TAB.ER.PRT ONE ×2 (13:50→14:17)
[2021-02-20 13:51] VITALS: BP 142/88
[2021-02-20] MEDS ORDERED: POTASSIUM CHLORIDE 20 MEQ TAB.ER.PRT PO ONE (14:00)
--- NOTE | 2021-02-20 14:39 | NUR ---
PatienT given discharge instructions and they have confirmed that they understand the instructions. Patient ambulatory with steady gait. NAD, all questions answered appropriately, denies additional needs at this time. No personal belongings left in room after discharge.
== END 2021-02-20 14:40 | disposition home or self-care (01) ==
LOC: ED 12:09
DX: N20.0 Calculus of kidney (principal); R10.9 Unspecified abdominal pain; E87.6 Hypokalemia; I10 Essential (primary) hypertension; G43.909 Migraine, unspecified, not intractable, without status migrainosus
CPT/HCPCS: 36415; 76770; 80053; 81001; 85025; 96372; 99284; J1885; Q0162

== ENCOUNTER 2021-03-07 23:53 | Emergency (ER) | payer MEDICAID ==
[~2021-03-07] VITALS: Ht 167.6 cm; Wt 65.0 kg
[2021-03-07 23:57] VITALS: BP 159/107
--- NOTE | 2021-03-08 03:41 | NUR ---
PT CALLED FOR ROOM. NA X 1
--- NOTE | 2021-03-08 03:52 | NUR ---
PT CALLED TO BE DISCHARGED. PT NO LONGER IN LOBBY
== END 2021-03-08 03:54 | disposition left against medical advice (07) ==
LOC: ED 03-08 02:29
DX: M79.644 Pain in right finger(s) (principal)
CPT/HCPCS: 99283

== ENCOUNTER 2021-04-04 17:51 | Emergency (ER) | payer MEDICAID ==
[~2021-04-04] VITALS: Ht 167.6 cm; Wt 66.2 kg
[2021-04-04 17:55] VITALS: BP 134/93
--- NOTE | 2021-04-04 18:35 | NUR ---
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
[2021-04-04] MEDS ORDERED: LIDOCAINE-MPF 1%, 5ML ONE (19:13)
[2021-04-04] MEDS ORDERED: LIDOCAINE-MPF 1%, 5ML INFIL ONE (19:30)
== END 2021-04-04 21:14 | disposition home or self-care (01) ==
LOC: ED 19:00
DX: S62.616A Displaced fracture of proximal phalanx of right little finger, initial encounter for closed fracture (principal); I10 Essential (primary) hypertension; X58.XXXA Exposure to other specified factors, initial encounter; Y93.89 Activity, other specified; Y92.009 Unspecified place in unspecified non-institutional (private) residence as the place of occurrence of the external cause; Y99.8 Other external cause status
CPT/HCPCS: 29130; 99283

== ENCOUNTER 2021-04-21 12:13 | Emergency (ER) | payer MEDICAID ==
[~2021-04-21] VITALS: Ht 165.1 cm; Wt 66.6 kg
[2021-04-21] MEDS ORDERED: LISINOPRIL 20 MG TABLET PO ONE (13:30)
[2021-04-21] MEDS ORDERED: DIAZEPAM 5 MG TABLET PO/NG ONE (13:30)
[2021-04-21] MEDS ORDERED: PROMETHAZINE 25 MG/ML, 1ML IM ONE (13:30)
[2021-04-21] MEDS ORDERED: KETOROLAC 30 MG/1 ML IM ONE (13:30)
[2021-04-21] MEDS ORDERED: LISINOPRIL 20 MG TABLET ONE (13:41)
[2021-04-21] MEDS ORDERED: PROMETHAZINE 25 MG/ML, 1ML ONE (13:41)
[2021-04-21] MEDS ORDERED: KETOROLAC 30 MG/1 ML ONE (13:42)
[2021-04-21] MEDS ORDERED: DIAZEPAM 5 MG TABLET ONE (13:42)
[2021-04-21 14:48] VITALS: BP 162/98
== END 2021-04-21 14:50 | disposition home or self-care (01) ==
LOC: ED 12:19
DX: G44.219 Episodic tension-type headache, not intractable (principal); I10 Essential (primary) hypertension; J44.9 Chronic obstructive pulmonary disease, unspecified
CPT/HCPCS: 96372; 99284; J1885; J2550

== ENCOUNTER 2021-04-26 05:54 | Emergency (ER) | payer MEDICAID ==
[~2021-04-26] VITALS: Ht 165.1 cm; Wt 66.0 kg
--- NOTE | 2021-04-26 06:10 | NUR ---
PT PRESENTS TO THE ED WITH SWELLING AND PAIN IN RIGHT HAND AROUND PINKY AREA. PT HAD SURGERY TO FIX BROKEN PINKY ON 04/15/21. PT STATES SHE IS TO HAVE A FOLLOW UP APPOINTMENT ON 04/30/[address] ESCOBAR. PT RESTING ON GURNEY AND PLACED ON CONTINUOUS MONITORING, PT GIVEN ICE FOR HAND.
--- NOTE | 2021-04-26 06:50 | NUR ---
TOOK REPORT FROM JOCELYN [place], ASSUME CARE AT THIS TIME.
--- NOTE | 2021-04-26 06:56 | NUR ---
PT CALM IN BED AWAITING MD HELLER.
--- NOTE | 2021-04-26 07:02 | NUR ---
GAVE REPORT TO KAPIL ARMENDARIZ
[2021-04-26] MEDS ORDERED: LIDOCAINE-MPF 1%, 5ML ONE ×2 (07:13→07:55)
[2021-04-26] MEDS ORDERED: LIDOCAINE-MPF 1%, 5ML INFIL ONE (07:30)
[2021-04-26] MEDS ORDERED: KETOROLAC 30 MG/1 ML IM ONE (07:30)
[2021-04-26] MEDS ORDERED: KETOROLAC 30 MG/1 ML ONE (07:55)
[2021-04-26 08:34] VITALS: BP 124/74
== END 2021-04-26 08:35 | disposition home or self-care (01) ==
LOC: ED 06:18
DX: S62.616A Displaced fracture of proximal phalanx of right little finger, initial encounter for closed fracture (principal); Z44.8 Encounter for fitting and adjustment of other external prosthetic devices; J44.9 Chronic obstructive pulmonary disease, unspecified; I10 Essential (primary) hypertension; G43.909 Migraine, unspecified, not intractable, without status migrainosus; X58.XXXA Exposure to other specified factors, initial encounter; Y93.89 Activity, other specified; Y92.89 Other specified places as the place of occurrence of the external cause; Y99.8 Other external cause status
CPT/HCPCS: 29125; 96372; 99283; J1885

== ENCOUNTER 2021-04-27 03:47 | Emergency (ER) | payer MEDICAID ==
[~2021-04-27] VITALS: Ht 165.1 cm; Wt 67.5 kg
[2021-04-27 03:52] VITALS: BP 142/94
[2021-04-27] MEDS ORDERED: LIDOCAINE-MPF 1%, 5ML ONE (04:20)
[2021-04-27] MEDS ORDERED: OXYcodone/APAP 5/325MG TABLET ONE (04:25)
[2021-04-27] MEDS ORDERED: LIDOCAINE 1%, 10ML INFIL ONE (04:30)
[2021-04-27] MEDS ORDERED: OXYcodone/APAP 5/325MG TABLET PO ONE (04:30)
--- NOTE | 2021-04-27 05:25 | NUR ---
Patient/Caregiver given discharge instructions and they have confirmed that they understand the instructions. Patient ambulatory with steady gait. NAD, all questions answered appropriately, denies additional needs at this time. No personal belongings left in room after discharge.
== END 2021-04-27 05:26 | disposition home or self-care (01) ==
LOC: ED 05:15
DX: M79.641 Pain in right hand (principal); Z76.0 Encounter for issue of repeat prescription; T81.89XA Other complications of procedures, not elsewhere classified, initial encounter; Z98.890 Other specified postprocedural states; I10 Essential (primary) hypertension; G43.909 Migraine, unspecified, not intractable, without status migrainosus
CPT/HCPCS: 29125; 99283; J3490